=== PATIENT | female | born 2000 | race Caucasian/White ===

== ENCOUNTER 2023-09-19 07:16 | Emergency (ER) | payer OTHER, SELFPAY ==
[2023-09-19 07:20] VITALS: BP 131/69; PULSE 66; RESP 18; TEMP 36.4; O2SAT 100; BMI 21.1
--- NOTE | 2023-09-19 07:59 | ED.GENADULT ---
HPI - General Adult General Chief complaint: Headache Stated complaint: migraine Time Seen by Provider: 09/19/23 07:38 Source: patient Mode of arrival: ambulatory Limitations: no limitations History of Present Illness HPI narrative: Patient is a 23-year-old female with history of migraines presenting to the emergency department with headache since yesterday. States headache is consistent with previous migraines. Reports gradual onset. Denies worst headache of life. Complains of associated nausea and photophobia. Took Excedrin at home with little relief of symptoms. Denies any chest pain, shortness of breath, palpitations, syncope. Denies any double vision or other visual changes. Denies any neck pain, stiffness, or fever. Denies any fall or recent trauma. Denies weight loss or headache worst in the morning. MD complaint: Headache Onset (ago): day(s) Location: head Radiation: non-radiation Severity: severe and similar to prior episodes Quality: aching Pain Consistency: constant Relieving factors: none Exacerbating factors: movement and other (Light) Associated symptoms: nausea/vomiting (Reports nausea denies vomiting) Treatments prior to arrival: other (Excedrin) Related Data Allergies Allergy/AdvReac Type Severity Reaction Status Date / Time No Known Allergies Allergy Verified 09/19/23 07:22 Review of Systems Review of Systems: As per HPI. Yes all other systems are reviewed and are negative Constitutional: Constitutional: Reports as per HPI [facility], [facility] Social History Social History Advance Directives: No Physical Exam ED Vital Signs: Vital Signs - 24 hr 09/19/23 07:20 Temperature 97.6 F Pulse Rate 66 Respiratory Rate 18 Blood Pressure 131/69 Pulse Oximetry 100 Oxygen Delivery Method Room Air BMI result Body Mass Index 21.1 Vital signs have been reviewed and appear to be correct. Blood pressure normal. Heart rate normal. Respiratory rate normal. Temperature normal. Oxygen saturation normal. Const General: cooperative, healthy appearing and no acute distress Orientation/consciousness: oriented to person, oriented to place, oriented to time and patient oriented x3 Limitations: no limitations HENMT Head: Yes normocephalic and Yes atraumatic Ears: external ears normal General nose exam: Normal external nose present Face and sinus: Yes face symmetric Mouth: oropharynx normal and moist mucous membranes Throat: Yes uvula midline Eyes Pupils: Equal, round and reactive pupils present Neck Neck: Yes normal visual inspection, Yes no meningeal signs and Yes supple Resp Effort & Inspection: normal respiratory effort and able to speak in complete sentences Auscultation: clear to auscultation bilaterally Cardio Rate: regular rate Rhythm: regular rhythm Heart sounds: S1 normal heart sound present and S2 normal heart sound present GI Palpation (GI): Soft to palpation and nontender Auscultation: normoactive bowel sounds General: Yes no CVA tenderness Back/Spine/Pelvis Back: no CVA tenderness Skin General skin exam: elasticity normal and turgor normal Neuro General: oriented to person, oriented to place, oriented to time, patient oriented x3, gait normal, tone normal, moves all extremities, Normal light touch and pain sensation, no meningeal signs, no focal motor deficits, CN's II-XI intact bilaterally and deep tendon reflexes 2+ bilaterally Cranial nerves: Yes Equal, round and reactive pupils present Cognition (Neuro): normal cognition Motor exam (neuro): 5/5 motor strength present throughout Extrem General: Yes full ROM, Yes no pedal edema and Yes no calf tenderness Psych Mental Status: mental status grossly normal Affect: normal affect Thought process: Normal thought process present Course Reevaluation(s) Reevaluation #1: Patient reports full relief of headache after medications, feels ready for discharge home. Return precautions discussed. Advised patient to drink plenty of fluids. Instructed patient follow-up with primary care provider. Patient verbalized understanding and agreement with plan. Time: 09:34 Medications Administered Discontinued Medications Generic Name Dose Route Start Last Admin Trade Name Phuong PRN Reason Stop Dose Admin Diphenhydramine HCl 25 mg 09/19/23 08:01 09/19/23 08:15 Diphenhydramine Hcl 50 Mg/Ml Vial IVPUSH 09/19/23 08:02 25 mg ONCE ONE Administration Sodium Chloride 1,000 mls @ 999 mls/hr 09/19/23 08:15 09/19/23 08:15 Ns IV 09/19/23 09:15 999 mls/hr .Q1H1M SAJI Administration Ketorolac Tromethamine 15 mg 09/19/23 08:01 09/19/23 08:14 Ketorolac Tromethamine 15 Mg/Ml Vial IVPUSH 09/19/23 08:02 15 mg ONCE ONE Administration Metoclopramide HCl 10 mg 09/19/23 08:01 09/19/23 08:17 Metoclopramide Hcl 10 Mg/2 Ml Vial IVPUSH 09/19/23 08:02 10 mg ONCE ONE Administration Medical Decision Making Medical Decision Making [facility] Narrative: Patient is a 23-year-old female with history of migraines presenting to the emergency department with headache since yesterday. On exam patient is awake, A+Ox3, VS WNL, afebrile, normal neurological exam without focal deficits, physical exam findings as above. Given reported symptoms and physical exam findings, initial differential includes migraine, tension headache. No red flag findings concerning for SAH/ICH. Do not suspect acute glaucoma, carotid artery dissection, encephalitis, meningitis, pseudotumor, temporal arteritis. Will treat with IV fluids, metoclopramide, Toradol, diphenhydramine and reassess. Please refer to course for remaining clinical decision making. Differential Diagnosis Differential Diagnoses: The differential diagnosis associated with the presentation includes As per [facility]. External Record Review External record reviewed: Inpatient record, Office record and Outpatient record Prescription Management I considered prescription management with: Pain Medication Discharge Plan Discharge Clinical Impression: Migraine Patient Disposition: Home, Self-Care Instructions: Migraine Headache (ED) Additional Instructions: You have been evaluated in the emergency department today for headache. Your evaluation did not show evidence of medical conditions requiring emergent intervention at this time, and your pain improved with medication in the ED. We recommend you take 600 mg ibuprofen every 6 hours or Tylenol 650 mg every 6 hours as needed for pain. If needed, you can alternate these medications so that you take 1 medication every 3 hours. For instance, at noon take ibuprofen, then at 3:00 p.m. take Tylenol, then at 6:00 p.m. take ibuprofen. Please follow-up with your primary care provider within 2 days. Return to the emergency department if you experience worsening or uncontrolled pain, vision changes, recurrent vomiting, difficulty with normal activities, abnormal behavior, difficulty walking, numbness, weakness, or any other concerning symptoms.
[2023-09-19] MEDS: Ketorolac Tromethamine 15 MG/ML VIAL IVPUSH (08:14)
[2023-09-19] MEDS: diphenhydrAMINE HCL 50 MG/ML VIAL 25 MG IVPUSH (08:15)
[2023-09-19] MEDS: 0.9 % Sodium Chloride 1,000 ML 999 ML IV (08:15)
[2023-09-19] MEDS: Metoclopramide HCl 10 MG/2 ML VIAL IVPUSH (08:17)
[2023-09-19 10:07] VITALS: BP 122/65; PULSE 71; RESP 16; O2SAT 97
== END 2023-09-19 10:10 | disposition home or self-care (01) ==
PROVIDERS: Emergency Provider Emergency Medicine
DX: G43.909 Migraine, unspecified, not intractable, without status migrainosus (principal)
CPT/HCPCS: 96374; 96375; 99284; J1200; J1885; J2765